=== PATIENT | female | born 1965 | race Caucasian/White ===

== ENCOUNTER 2023-12-12 10:21 | Day surgery (SDC) | payer BC ==
[~2023-12-12] VITALS: Ht 165.1 cm; Wt 135.3 kg
[~2023-12-12 10:21] MED LIST: ATOR-2 PO; CHOL500050 PO; DULA0.75 SUBCUT; EMPA10TA PO; FERR325T7 PO; LISI10TA27 PO; METF-1203 PO
[2023-12-12 10:47] VITALS: BP 179/92; PULSE 65; RESP 15; TEMP 98
[2023-12-12] MEDS ORDERED: fentaNYL/PF 50MCG/1 ML 2ML syringe ONE (13:20)
[2023-12-12] MEDS ORDERED: MIDAZolam 1 MG/ML 5ML VIAL ONE (13:20)
[2023-12-12 13:56] VITALS: BP 118/64; PULSE 82; RESP 26; O2SAT 97
[2023-12-12 14:06] VITALS: BP 121/58; PULSE 73; RESP 19; O2SAT 95
[2023-12-12 14:16] VITALS: BP 114/57; PULSE 72; RESP 19; O2SAT 97
[2023-12-12 14:26] VITALS: BP 109/54; PULSE 68; RESP 17; O2SAT 95
== END 2023-12-12 14:29 | disposition home or self-care (01) ==
LOC: GI LAB 10:21
PROVIDERS: ATTEND Internal Medicine Gastroenterology
DX: Z12.11 Encounter for screening for malignant neoplasm of colon (principal); K62.1 Rectal polyp; Z86.010 Personal history of colon polyps
CPT/HCPCS: 45385; 99152; J2250; J3010; J7030; Z7512; 99153; A4620; C1889